=== PATIENT | female | born 1945 ===

== ENCOUNTER 2018-08-26 13:19 | Inpatient (IN) | payer OTHER ==
[~2018-08-26] VITALS: Ht 180.3 cm; Wt 117.9 kg
[2018-10-01] MEDS ORDERED: VASOTEC20 M1 PO (13:32)
[2018-10-01] MEDS ORDERED: CARVEDILOL25 MG PO (13:32)
[2018-10-01] MEDS ORDERED: FOLIC ACID1 MG PO (13:33)
[2018-10-01] MEDS ORDERED: DIGOX250 MCG PO (13:33)
[2018-10-01] MEDS ORDERED: XARELTO20 MG PO (13:33)
[2018-10-01] MEDS ORDERED: LASIX40 MG PO (13:34)
[2018-10-01] MEDS ORDERED: SYNTHROID50 MCG PO (13:34)
[2018-10-01] MEDS ORDERED: TRAMADOL HCL50 MG PO (13:34)
[2018-10-01] MEDS ORDERED: ARTHRITIS PAIN PO (13:35)
[2018-10-08] MEDS ORDERED: 8HR ARTHRITIS650 MG PO (08:20)
[2018-10-15] MEDS ORDERED: HYOSCYAMINE0.125 M1 SL (09:27)
[2018-10-15] MEDS ORDERED: GAS-X125 M1 PO (09:28)
[2018-10-15] MEDS ORDERED: ULTRACET PO (09:28)
[2018-10-15] MEDS ORDERED: INTESTINEX680 M1 PO (09:29)
[2018-10-15] MEDS ORDERED: QUESTRAN POWDE378 GM PO (09:30)
== END 2018-10-15 18:20 | disposition home or self-care (01) | DRG 331 ==
LOC: O/R 10-08 06:40 → SURH 10-08 06:40
PROVIDERS: ADMIT Colon & Rectal Surgery
PROC: 07TB4ZZ Resection of Mesenteric Lymphatic, Percutaneous Endoscopic Approach (ICD-10-PCS; 2018-10-08)
PROC: 0DTH4ZZ Resection of Cecum, Percutaneous Endoscopic Approach (ICD-10-PCS; principal; 2018-10-08 10:30)
PROC: 4A12X4Z Monitoring of Cardiac Electrical Activity, External Approach (ICD-10-PCS; 2018-10-09)
DX: D12.0 Benign neoplasm of cecum (principal); R59.0 Localized enlarged lymph nodes; I48.0 Paroxysmal atrial fibrillation; I10 Essential (primary) hypertension; E03.8 Other specified hypothyroidism